=== PATIENT | male | born 1955 | race Caucasian/White ===

== ENCOUNTER → 2021-09-26 | Outpatient (CLI) | payer MEDICARE ==
--- NOTE | 2021-09-26 13:35 | Diagnostic Imaging Report ---
INDICATION: Neck pain radiating into the right arm as well as numbness in the right fingers. TIME OF EXAM: 11:08 AM. FINDINGS: There is straightening of the normal cervical lordotic curvature. There is minimal retrolisthesis of C5 on C6. Severe degenerative disc disease at the C5-C6 and C6-C7 levels is noted with disc space narrowing and marginal spurring. The prevertebral tissues are within normal limits. The odontoid appears intact. No fractures are seen. IMPRESSION: Lower cervical spondylosis and listhesis. No acute bony abnormality is detected. Dictated by: Dictated on workstation # [id number]
--- NOTE | 2021-09-26 13:43 | Diagnostic Imaging Report ---
INDICATION: Neck pain radiating to the right arm. TIME OF EXAM: 11:10 AM Frontal and lateral views of the thoracic spine were obtained. There is mild left convexity lower thoracic scoliotic curvature. There is normal kyphotic curvature. Vertebral body heights are well maintained. No acute compression fracture is detected. There is multilevel degenerative disc disease with variable disc space narrowing and marginal spurring. The pedicles and paraspinous line appear intact. IMPRESSION: Lumbar spondylosis and scoliosis. No acute bony abnormality is detected. Dictated by: Dictated on workstation # [id number]
== END ==
LOC: RAD FS 10:49
PROVIDERS: ATTEND Family Medicine
DX: M47.22 Other spondylosis with radiculopathy, cervical region (principal); M47.26 Other spondylosis with radiculopathy, lumbar region; M43.12 Spondylolisthesis, cervical region; M41.86 Other forms of scoliosis, lumbar region
CPT/HCPCS: 72040; 72072